=== PATIENT | male | born 1970 | race Caucasian/White ===

== ENCOUNTER → 2022-06-29 | Day surgery (SDC) | payer OTHER ==
[~2022-06-29] VITALS: Ht 168.9 cm; Wt 113.4 kg
[~2022-06-29] MED LIST: 8 HOUR650 MG PO; AMLODIPINE BESY10 MG PO; ASPIRIN EC81 MG PO; CARVEDILOL3.125 MG PO; CYCLOBENZAPRINE10 MG PO; CYMBALTA20 MG PO; EZETIMIBE10 MG PO; GABAPENTIN600 MG PO; GLIPIZIDE10 MG PO; LASIX40 MG PO; LISINOPRIL40 MG PO; NARCAN4 MG; NITROGLYCERIN0.4 MG SL; OXYCODONE-ACET1 EAC1 PO; PERCOCET 5-3251 EACH PO; RANOLAZINE ER500 MG PO; TOUJEO MAX300 UNIT/1 SC; XARELTO20 MG PO
[2022-06-29 09:18] LABS: HCT 49.1 % (42.0-52.0); HGB 16.9 g/dl (13.2-18.0); MCH 30.7 pg (25.0-31.0); MCHC 34.4 g/dL (32.0-36.0); MCV 89.3 fL (78.0-100.0); MPV 10.1 fL (6.0-9.5); RBC 5.5 M/uL (4.70-6.00); RDW 12.8 % (11.5-14.0); WBC 7.4 K/uL (4.0-10.5)
[2022-06-29 10:05] LABS: ALBUMIN 3.4 g/dL (3.4-5.0); BUN/CREAT RATIO (CALC) 15.4 RATIO; CREATININE 0.91 mg/dL (0.67-1.17); GLOBULIN (CALCULATION) 3.5 g/dL; POTASSIUM 3.8 mmol/L (3.5-5.1); TOTAL PROTEIN 6.9 g/dL (6.4-8.2)
== END | disposition home or self-care (01) ==
LOC: FAS 08:30
PROVIDERS: Surgery
DX: K58.0 Irritable bowel syndrome with diarrhea (principal); I10 Essential (primary) hypertension; I25.2 Old myocardial infarction; E11.69 Type 2 diabetes mellitus with other specified complication
CPT/HCPCS: 36415; 80053; J2704; J7120